=== PATIENT | male | born 1955 | race Caucasian/White ===

== ENCOUNTER → 2025-02-14 10:47 | Outpatient (CLI) | payer MEDICARE, SELFPAY ==
--- NOTE | 2025-02-14 10:51 | DI.RAD.S_ITS ---
PROCEDURE: XR LUMBAR SPINE 5V INDICATIONS: BACK PAIN TECHNIQUE: 5 views of the lumbar spine were acquired, including bilateral oblique views. COMPARISON: None. FINDINGS: Moderate degenerative changes throughout the lumbar spine with disc space narrowing, osteophytes, facet osseous hypertrophic changes most notably at L3-4, L4-5 and L5-S1 with suspected moderate bilateral neural foraminal narrowing at these levels. No radiographic evidence of fracture or subluxation. Moderate vascular calcifications of the aorta and iliac arteries. Degenerative changes bilateral hips partially imaged. Oblique images: No radiographic evidence of pars defect. IMPRESSION: Degenerative changes as discussed above. If symptoms persist or worsen, or there is high clinical suspicion of lumbar abnormality, MRI could be performed. Dictated by: Colten Powell M.D. on 02/14/2025 at 12:02 Approved by: Colten Powell M.D. on 02/14/2025 at 12:04
== END ==
PROVIDERS: PCP Physician Assistant Medical; Referring Provider Physical Medicine & Rehabilitation; Visit Provider Physical Medicine & Rehabilitation
DX: M47.816 Spondylosis without myelopathy or radiculopathy, lumbar region (principal); M47.817 Spondylosis without myelopathy or radiculopathy, lumbosacral region; M54.9 Dorsalgia, unspecified
CPT/HCPCS: 72110

== ENCOUNTER 2025-06-21 10:53 | Outpatient (CLI) | payer MEDICARE, SELFPAY ==
--- OUTSIDE RECORDS SUMMARY | 2025-06-16 09:13 | XMS_ITS | Encounter Summary ---
[facility] Address [address] [place] [address] Care Team Providers Care Marketing Admin Name Role Phone Myra Sommer PA-C Primary Care Provider [phone]- [phone] Reason for Referral * Clinic-Administered Medication (Routine) - Authorized Specialty Diagnoses / Procedures Referred By Summer lockett [place] [address] [facility] [address] [place] [address] Phone: tel: fax: Referral ID Status Reason Start Date Expiration Date V isits Requested Visits Authorized [id number] Authorized 06/16/2025 07/21/2026 1 1 * Hospital - Outpatient (Routine) - Closed Specialty Diagnoses / Procedures Referred By Contact Referred To Contact Gastroenterology Diagnoses Esophageal inlet patch Procedures EGD CA ESOPHAGOGASTRODUODENOSCOPY TRANSORAL DIAGNOSTIC CA EGD TRANSORAL BIOPSY SINGLE/MULTIPLE CA ANESTHESIA UPPER GI ENDOSCOPIC PX NOS CA ANESTHESIA COMBINED UPPER&L[place] [address] [address] Phone: tel:[phone] fax:[phone] Referral ID Status Reason Start Date Expiration Date Visits Re quested Visits Authorized [id number] Closed 05/22/2025 06/26/2026 1 1 Reason for Visit * Hospital - Outpatient (Routine) - Closed Specialty Diagnoses / Procedures Referred By Contact Referred To Contact Gastroenterology Diagnoses Esophageal inlet patch Procedures EGD CA ESOPHAGOGASTRODUODENOSCOPY TRANSORAL DIAGNOSTIC CA EGD TRANSORAL BIOPSY SINGLE/MULTIPLE CA ANESTHESIA UPPER GI ENDOSCOPIC PX NOS CA ANESTHESIA COMBINED UPPER&[place] [address] [address] Phone: tel:[phone] fax:[phone] Referral ID Status Reason Start Date Expiration Date Visits Re quested Visits Authorized [id number] Closed 05/22/2025 06/26/2026 1 1 Encounter Details Date Type Department Care Team (Latest Contact Info) Description 06/16/2025 9:13 AM PST - 06/16/2025 11:59 PM PST Hospital Encounter [facility] [address] [address] [place] [address] [address] Esophageal inlet patch Discharge Disposition: Discharged to home or self care Social History Tobacco Use Types Packs/Day Years Used Date Smoking Tobacco: Former Cigarettes 1.5 45 0 01/21/1972 - 10/10/2016 Smokeless Tobacco: Never Alcohol Use Standard Drinks/Week Comments Yes 14 (1 standard drink = 0.6 oz pu re alcohol) 1-2 beers per day Sex and Gender Information Value Date Recorded Sex Assigned at Male 08/24/2023 9:46 PM PST Legal Sex Male 3:50 PM PDT Gender Identity Male 08/24/2023 9:46 PM PST Sexual Orientation Straight 08/24/2023 9: 46 PM PST documented as of this encounter Last Filed Vital Signs Vital Sign Reading Time Taken Comments Blood Pressure 136/78 06/16/2025 11:27 AM PST Pulse 72 06/16/2025 11:27 AM PST Temperature 36.7 C (98.1 F) 06/16/2025 11:12 AM PST Respiratory Rate 13 06/16/2025 11:27 AM PST Oxygen Saturation 97% 06/16/2025 11:27 AM PST Inhaled Oxygen Concentration - - Weight 99.8 kg (220 lb) 06/16/2025 9:45 AM PST Height 180.3 cm (5' 11) 06/16/2025 9:45 AM PST Body Mass Index 30.68 06/16/2025 9:45 AM PST documented in this encounter Functional Status * Fall Risk and Interventions Question Answer Date of Assessment Author History of Falling No 06/16/2025 9:43 AM Awa Mace RN Score 0 06/16/2025 9:43 AM PST Awa Emery RN documented as of this encounter Medications at Time of Discharge atenolol (Tenormin) 50 MG tablet Take by mouth at night. CALCIUM PO Take by mouth at night. cetirizine (ZyrTEC) 10 MG tablet Take 10 mg by mouth at night. lisinopril 20 MG tablet Take 20 mg by mouth at night. magnesium, chelated, 100 MG tablet Take by mouth at night. omeprazole (PriLOSEC) [address] capsule Take 20 mg by mouth before breakfast and before evening meal. Do not crush or chew. simvastatin (Zocor) 40 MG tablet Take 40 mg by mouth at night. traZODone (Desyrel) 50 MG tablet 09/16/2023 triamcinolone (Kenalog) 0.1 % cream 08/06/2023 TURMERIC PO Take by mouth at night. documented as of this encounter Miscellaneous Notes * Discharge Instructions - Xavier Villalpando RN - 06/16/2025 11:21 AM PST EGD POST-PROCEDURE INSTRUCTIONS Diet: If your throat was numbed for the procedure, do not eat or drink anything HOT for one hour after procedure. You may resume a normal diet, unless you are nauseous, vomiting, or a specific diet is specified byyour physician. No alcohol for the next 24 hours. For the first 24 hours: Do not drive a car, operate machinery or power tools. Do not make important decisions, such as signing papers or checks, as your judgement may not be clear. Do not drink alcoholic beverages. Do not smoke unless someone is with you. This includes any type of smoking (vaping, cigarettes, marijuana, etc). If you have sleep apnea and use CPAP or BIPAP, use your machine when napping. Normal post-procedure symptoms: Sore throat. Gargle with warm water to help relieve discomfort. Mild gaseous discomfort (belching or passing gas). Redness, tenderness or swelling involving the IV site for the first 48 hours. Concerns to report to your physician: Severe nausea, vomiting or inability to keep fluids down after 24 hours. Fever above 101.5 F or 38.5 C Worsening or severe abdominal pain. Redness, tenderness or swelling involving the IV site for more than 2 days. Get help right away if: You have difficulty swallowing. You vomit bright red blood or a substance that looks like coffee grounds. You have bloody or black, tarry stools. Chest pain or shortness of breath - Call 911 If your provider took biopsies during your procedure, you may be notified of your results via a phone call or mail within 1-2 weeks. Your results will also be in MyChart if you have signed up. If any questions or concerns please contact [facility] office at . * H&P - Gloria Palm MD - 06/16/2025 10:15 AM PST Date of Admission 06/16/2025 Chief Complaint Follow-up to Cortes's esophagus and inlet patch ablation History of Present Illness Cortes's inlet patch Active and Past Medical/Surgical History There are no active hospital problems to display for this patient. 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 EYE SURGERY 1964 ROTATOR CUFF REPAIR 2019 SHOULDER OPEN ROTATOR CUFF REPAIR Left 2021 TONSILLECTOMY 1972 Outpatient Medications (last documented, pending reconciliation) Current Outpatient Medications Medication Instructions atenolol (Tenormin) 50 MG tablet at night CALCIUM PO at night cetirizine (ZYRTEC) 10 mg, at night lisinopril 20 mg, at night magnesium, chelated, 100 MG tablet at night omeprazole (PRILOSEC) 20 mg, 2 times daily before meals simvastatin (ZOCOR) 40 mg, at night traZODone (Desyrel) 50 MG tablet triamcinolone (Kenalog) 0.1 % cream TURMERIC PO at night Allergies No Known Allergies Social History Social History Tobacco Use Smoking status: Former Current packs/day: 0.00 Average packs/day: 1.5 packs/day for 45.0 years (67.5 ttl pk-yrs) Types: Cigarettes Start date: 01/21/1972 Quit date: 10/10/2016 Years since quittin.6 Smokeless tobacco: Never Vaping Use Vaping status: Never Used Substance Use Topics Alcohol use: Yes Alcohol/week: 14.0 standard drinks of alcohol Types: 14 Cans of beer per week Comment: 1-2 beers per day Drug use: Never Family History Family History Problem Relation Name Age of Onset Cancer Mother Danita Mak Cancer Father Johnathan Villarreal Obdulio Hammonds Diabetes Father Johnathan Villarreal Obdulio Hammonds Heart disease Father Johnathan Phil Obdulio Hammonds Stroke Father Johnathan AyushJuli Mak Jr Diabetes Maternal Grandfather Johnathan Phil Obdulio Diabetes Brother Johnathan Mak III Review of Systems Complete review of systems reviewed and negative unless otherwise detailed above or in the history of present illness. Objective Last Recorded Vital Signs BP 131/73 Pulse 84 Temp (!) 35.5 ??C (95.9 ??F) Resp 16 Ht 1.803 m (5' 11) Wt 99.8 kg (220 lb) SpO2 96% BMI 30.68 kg/m?? Temp (24hrs), Av.5 ??C (95.9 ??F), Min:35.5 ??C (95.9 ??F), Max:35.5 ??C (95.9 ??F) [place] body weight: 75.3 kg (166 lb 0.1 oz) Adjusted ideal body weight: 85.1 kg (187 lb 9.7 oz) Physical Exam Vitals: 06/16/25 0945 BP: 131/73 Pulse: 84 Resp: 16 Temp: (!) 35.5 ??C (95.9 ??F) SpO2: 96% Weight: 99.8 kg (220 lb) Height: 1.803 m (5' 11) Physical Examination: GENERAL APPEARANCE: no distress, pleasant, talking full sentences HEART: regular rhythm and rate, no murmurs appreciated LUNGS: normal respiratory effort; no wheezing, rales or rhonchi ABDOMEN: normal active bowel sounds, soft, non-tender, non-distended, Lab Results No results found for this or any previous visit (from the past 24 hours). Microbiology Results from last 24 hours No results found for this or any previous visit (from the past 24 hours). Diagnostic Results Imaging results from the last day: No Results Assessment/Plan EGD Code Status No Order documented in this encounter Plan of Treatment Not on file documented as of this encounter Procedures Procedure Name Priority Date/Time Associated Diagnosis Comments EGD Routine 06/16/2025 11:10 AM PST Esophageal inlet patch Cortes's esophagus without dysplasia [facility] SURGPATH/NONGYN CYTOLOGY Routine 06/16/2025 11:00 AM PST Esophageal inlet patch documented in this encounter Results * EGD (06/16/2025 11:10 AM PST) Anatomical Region Laterality Modality Endoscopy Narrative 06/16/2025 11:19 AM PST Table formatting from the original result was not included. Impression C0M2 Cortes's esophagus; performed targeted cold forceps biopsy for dysplasia screening. Cleveland-colored mucosa with islands in the esophagus; performed cold forceps biopsy. Subcentimeter polyp in the fundus of the stomach; performed cold forceps biopsy. The stomach and duodenum appeared normal. Recommendation Await pathology results - Resume regular diet. - Resume regular medication -Repeat EGD in 3 to 5 years; or earlier depending on pathology results or symptoms. Indication Esophageal inlet patch Patient reports significant improvement in his symptoms following ablation; although now has recurrence of symptoms in the past few days Staff Staff Role Austin [place], telecasting engineer Scrub Kyle Schulz MD Anesthesiologist Gloria Palm MD Proceduralist Katherine Vargas, telecasting engineer Nurse Medications See Anesthesia Record. Preprocedure A history and physical has been performed, and patient medication allergies have been reviewed. The patient's tolerance of previous anesthesia has been reviewed. The risks and benefits of the procedure and the sedation options and risks were discussed with the patient. All questions were answered and informed consent obtained. Details of the Procedure The patient underwent monitored anesthesia care, which was administered by an anesthesia professional. The patient's blood pressure, heart rate, level of consciousness, oxygen saturation, respirations, ETCO2 and ECG were monitored throughout the procedure. The scope was introduced into the mouth through a bite block and advanced to the second part of the duodenum. Retroflexion was performed in the cardia. The patient experienced no blood loss. The procedure was not difficult. The patient tolerated the procedure well. There were no apparent adverse events. Findings C0M2 Cortes's esophagus observed with no associated lesion without using a distal attachment cap. The diaphragmatic impression was 42 cm from the incisors, Z-line was 38 cm from the incisors and the top of gastric folds was 40 cm from the incisors; performed targeted cold forceps biopsy for dysplasia screening. Cleveland-colored mucosa with islands measuring 20 mm x 15 mm in the esophagus (18 cm from the incisors); performed cold forceps biopsy. One 4 mm flat polyp in the fundus of the stomach; performed cold forceps biopsy. The stomach and duodenum appeared normal. Specimens ID Type Source Tests Collected by Time A : gastric polyp Biopsy Stomach [facility] SURGPATH/NONGYN CYTOLOGY Gloria Palm MD 06/16/2025 1100 B : r/o dysplasia Biopsy Gastroesophageal Junction [facility] SURGPATH/NONGYN CYTOLOGY Gloria Palm MD 06/16/2025 1100 C : inlet patch. r/o dysplasia Biopsy Esophagus [facility] SURGPATH/NONGYN CYTOLOGY Gloria Palm MD 06/16/2025 1104 Post Procedure Diagnosis Esophageal inlet patch Cortes's esophagus without dysplasia Report electronically signed by Gloria Palm MD Gloria Palm MD ENDOSCOPY PROCEDURE ORDERABLES Final Result * [facility] SurgPath/NonGYN Cytology (06/16/2025 11:00 AM PST) Biopsy Stomach structure / Unknown 06/16/2025 11:00 AM PST Biopsy Cardioesophageal junction structure / Unknown 06/16/2025 11:00 AM PST Biopsy Esophageal structure / Unknown 06/16/2025 11:04 AM PST Narrative [facility] - 06/20/2025 7:48 PM PST CASE: [id number] PATIENT: Vipul Mak Pathology Report [id number] FINAL DIAGNOSIS: A: Gastric polyp: Fundic gland polyp. B: Gastroesophageal junction biopsy: Inflamed squamocolumnar mucosa with reactive changes. Negative for goblet cell metaplasia or dysplasia. C: Esophagus inlet patch biopsy: Inflamed squamocolumnar mucosa with reactive changes. Negative for goblet cell metaplasia or dysplasia. CLINICAL INFORMATION: B, C. Rule out dysplasia. ICD code(s): Q39.8. GROSS DESCRIPTION: A: Received in formalin, labeled with the patient's name and A. Stomach gastric polyp, are two, 0.3-0.4 cm portion of jones-brown soft tissue entire submitted in A1. B: Received in formalin, labeled with the patient's name and B. Gastroesophageal junction, are four, 0.2-0.3 cm portions of jones-brown soft tissue entirely submitted in B1. C: Received in formalin, labeled with the patient's name and C. Esophagus inlet pouch, are three, 0.3-0.6 cm portions of jones-white soft tissue entirely submitted in C1. (jlk VR) Mary Ribeiro M.D. Electronically signed 06/20/2025 19:43 Performed at [facility], [address] [place] [id number], CLIA#: [id number] [employer] Ax Developer: Regis Kohler MD Microscopic: Unless otherwise specified, a microscopic exam has been performed. Gloria Palm MD LAB PATHOLOGY ORDERABLES Final Result [facility] documented in this encounter Visit Diagnoses Diagnosis Esophageal inlet patch documented in this encounter Additional Health Concerns Infection Onset Date Last Indicated Resolved Time C. difficile 08/26/2023 08/26/2023 documented as of this encounter Care Teams Marketing Admin Relationship Specialty Start Date End Date Myra Sommer PA-C [address] [place] [address] PCP - General 09/04/23 documented as of this encounter
--- OUTSIDE RECORDS SUMMARY | 2025-06-16 10:49 | XMS_ITS | Encounter Summary ---
Author Organization [facility] Address [address] [address] Care Team Providers Care Insulation Power Unit Tender Name Role Phone Myra Sommer PA-C Primary Care Provider [phone]- [phone] Encounter Details Date Type Department Care Team (Late st Contact Info) Description 06/16/2025 10:49 AM PST Anesthesia Event [facility] [address] [address] [address] [place] [address] [place] [address] [place] [address] [place] [address] Anesthesia Record Procedure Summary Procedure Name Responsible Anesthesiologist Anesthesia Start Time Anesthesia Stop Time EGD Kyle Schulz MD 06/16/25 1049 1113 Events Date Time Event Comment 06/16/2025 1038 1049 An Start 1049 An Start Data 1049 In Room 1051 Anesthesia Ready 1108 an stop data 1110 Out of Room 1113 Handoff to Receiving I compl eted my handoff during which we: 1. Identified the patient 2. Identified the responsible provider 3. Reviewed the pertinent medical history 4. Discussed the surgical course 5. Reviewed intra-op anesthesia management and issues during anesthesia 6. Set expectations for post-procedure period 7. Allowed opportunity for questions and acknowledgement of understanding. 1113 An Stop Meds Name Total lidocaine PF local injection 2 % 25 mg propofol injection 10 mg/mL 400 mg LR 100 mL * Agents Name O2 Auxiliary O2 * Blood No blood administrations on file. Lines, Drains, and Airways Type Details Placement Removal Peripheral IV Placement Date: 06/03 11/25; Placement Time: 09; Catheter Size: 22 G; Orientation: Posterior, Right; Location: Hand; Site Prep: Chlorhexidine; Inserted by: John RN; Insertion Attempts: 1; Patient Tolerance: Tolerated well; Removal Date: 06/16/25; Removal Time: 1135; Removal Reason: Treatment complete/discharge 06/16/25 0954 by Awa Lopez RN 06/16/25 1135 by Xavier Villalpando RN documented in this encounter Social History Tobacco Use Types Packs/Day Years [...] PM PST documented as of this encounter Functional Status * Fall Risk and Interventions Question Answer Date of Assessment Author History of Falling No 06/16/2025 9:43 AM PST Awa Lopez RN Score 0 06/16/2025 9:43 AM PST Awa Emery RN documented as of this encounter Miscellaneous Notes * Anesthesia Postprocedure Evaluation - Kyle Schulz MD - 06/16/2025 11:13 AM PST Patient: Rogers Mak Procedure Summary Date: 06/16/25 Room / Location: [facility] Anesthesia Start: 1049 Anesthesia Stop: 1113 Procedure: EGD Diagnosis: Esophageal inlet patch Scheduled Providers: Gloria Palm MD; Kyle Schulz MD Responsible Provider: Kyle Schulz MD Anesthesia Type: MAC, TIVA ASA Status: 3 Anesthesia Type: MAC, TIVA Vitals Value Taken Time BP 111/76 06/16/25 11:12 Temp 36.7 06/16/25 11:13 Pulse 82 06/16/25 11:13 Resp 20 06/16/25 11:13 SpO2 98 % 06/16/25 11:13 Vitals shown include unfiled device data. Anesthesia Post Evaluation Patient location during evaluation: PACU Patient participation: complete - patient participated Level of consciousness: at baseline Pain score: 0 Pain management: satisfactory to patient Airway patency: patent Two or more strategies used to mitigate risk of obstructive sleep apnea Cardiovascular status: acceptable and hemodynamically stable Respiratory status: acceptable Hydration status: acceptable PONV Status: none There were no known notable events for this encounter. * Anesthesia Preprocedure Evaluation - Kyle Schulz MD - 06/16/2025 10:36 AM PST Patient: Rogers Mak Procedure Information Date/Time: 06/16/25 1015 Scheduled providers: Gloria Palm MD; Kyle Schulz MD Procedure: EGD Location: [facility] Procedure [place] Relevant Problems Cardio (+) Primary hypertension GI (+) Gastroesophageal reflux disease Current Outpatient Medications Medication Instructions ??? atenolol (Tenormin) 50 MG tablet at night ??? CALCIUM PO at night ??? cetirizine (ZYRTEC) 10 mg, at night ??? lisinopril 20 mg, at night ??? magnesium, chelated, 100 MG tablet at night ??? omeprazole (PRILOSEC) 20 mg, 2 times daily before meals ??? simvastatin (ZOCOR) 40 mg, at night ??? traZODone (Desyrel) 50 MG tablet ??? triamcinolone (Kenalog) 0.1 % cream ??? TURMERIC PO at night No current facility-administered medications for this encounter. NPO Status: Date of Last Liquid: 06/16/25 Time of Last Liquid: 0600 Date of Last Solid: 06/15/25 Time of Last Solid: 1999 Clinical information reviewed: Tobacco Allergies Meds Problems Med Hx Surg Hx Fam Hx Soc Hx Physical Exam Airway Mallampati: I TM distance: >3 FB Neck ROM: full Cardiovascular - normal exam Rhythm: regular Rate: normal Dental Pulmonary - normal examBreath sounds clear to auscultation Anesthesia Plan ASA 3 MAC and TIVA The patient is not a current smoker. intravenous induction DNR discussed with patient and patient agreed that DNR will be suspended Anesthetic plan and risks discussed with patient. Use of blood products discussed with patient who consented to blood products. Additional Equipment Requests documented in this encounter Plan of Treatment Not on file documented as of this encounter Visit Diagnoses Not on filedocumented in this encounter Administered Medications Inactive Administered Medications - up to 3 most recent administrations Medication Order MAR Action Action Date Dose Rate Site lactated Ringer's infusion Intravenous, Continuous PRN, Starting on Thu06/16/25 at 1049, Anesthesia Intraprocedure New Bag 06/16/2025 10:49 AM PST lidocaine PF (Xylocaine) 2 % injection Intravenous, As needed, Starting on Thu06/16/25 at 1053, Anesthesia Intraprocedure Given 06/16/2025 10:53 AM PST 25 mg Propofol (Diprivan) injection Intravenous, As needed, Starting on Thu06/16/25 at 1053, Anesthesia Intraprocedure Given 06/16/2025 11:05 AM PST 100 mg Given 06/16/2025 11:02 AM PST 50 mg Given 06/16/2025 10:58 AM PST 100 mg documented in this encounter Additional Health Concerns Infection Onset Date Last Indicated Resolved Time C. difficile 08/26/2023 08/26/2023 documented as of this encounter Care Teams Insulation Power Unit Tender Relationship Specialty Start Date End Date Myra Sommer PA-C [address] [place] [id number] PCP - General 09/04/23 documented as of this encounter
[2025-06-21 11:20] VITALS: BP 158/74; PULSE 77; RESP 16; TEMP 36.6; O2SAT 95
[2025-06-21 11:37] VITALS: PULSE 84; RESP 16; O2SAT 94
[2025-06-21] MEDS: LIDOCAINE 1% (PF) 5 ML 10 ML INJ (11:40)
[2025-06-21 11:41] VITALS: BP 158/79; PULSE 80; RESP 17; O2SAT 95
[2025-06-21 11:45] VITALS: BP 156/86; PULSE 85; RESP 16; O2SAT 95
--- NOTE | 2025-06-21 13:25 | PM.PROC.IR.1 ---
Date/Time/Diagnoses Date of procedure: 06/21/25 Time of procedure: 11:30 Pre-procedure diagnosis: Lumbar stenosis, pain Post-procedure diagnosis: same Procedure Notes Procedure: Interlaminar epidural steroid injection L4-5 Indications: Lumbar stenosis, pain Physician: Rock Norwood Total sedation minutes: 0 Complications: none Procedure in detail & Post-procedure care: Patient is here for the planned procedure today as noted. No significant change since the last office visit. For additional clinical scenario please see those office notes. Focused exam: Vital signs reviewed as charted on intake. Gen: Well developed. No acute distress. CV: RRR, no M/R/G Chest: Non-labored breathing, CTAB. Psych: Alert and well-oriented. Mood/Affect: normal. Patient suitable for the planned procedure today: Yes === The following procedure was performed in the office today: Lumbar Epidural Steroid Injection with fluoroscopic guidance - Interlaminar approach (55830) Levels Treated: L4-5 Approach: interlaminar Soft tissue: [1% lidocaine 2 mL] Test dose: [1% lidocaine 1 mL] Injectate: 0.75 mL of Depo-Medrol (80mg/mL) in 1.25 mL 1% lidocaine and 1.5 mL normal saline Fluoroscopy Agent: Isovue 300-M 1.5 mL Notes: 4.5 in 20 gauge Touhy needle utilized and adequate. Preprocedure pain 2/10, postprocedure pain 0/10. Procedure: After discussing the risks, benefits, and alternatives to the procedure, the patient expressed understanding and wished to proceed. The risks include but are not limited to infection, allergic reaction, nerve damage, stroke, paralysis, epidural hematoma, syncope, headache, respiratory or cardiac arrest, spinal cord injury, and scar formation. Informed consent was obtained and all patient questions were answered. The patient was brought to the procedure suite and placed in the prone position. A pre-procedural pause was conducted to verify: correct patient identity, procedure to be performed and as applicable, correct side and site, correct patient position, and any special requirements. Using a paramedian approach from the side noted above, the region overlying the target was localized under fluoroscopic visualization and the soft tissues overlying this structure were infiltrated with the anesthetic listed above. With fluoroscopic guidance, a #20 gauge Tuohy needle (unless otherwise noted) was inserted into the epidural space using a paramedian approach. The epidural space was localized utilizing intermittent multiplanar fluoroscopic guidance and loss of resistance technique. After negative aspiration, the contrast noted above was injected into the epidural space and the flow of contrast was observed, confirming epidural spread without evidence of intravascular or intrathecal spread. Multi-planar radiographs were obtained for documentation purposes. A test dose of lidocaine was injected into the above noted epidural space, and the patient was observed for 30-60 seconds. No sensory deficits were reported and normal lower extremity motor function was noted. Subsequently, the injectate as noted above was administered into the level noted above. The patient tolerated the procedure well and was discharged after an appropriate period of observation. If there are any complications, the patient was instructed to call us. The patient is to follow-up with the requesting provider in 2-3 weeks. This note was compiled using voice recognition software and therefore may contain typos. Please contact the author with any questions or concerns.
--- OUTSIDE RECORDS SUMMARY | 2025-06-23 15:23 | XMS_ITS | Continuity of Care Document ---
Author Organization [facility] [place] [address] Phone Care Team Providers Care Drive Thru Order Taker Name Role Phone Myra Sommer PA-C Primary Care Provider Myra Sommer PA-C Attending Provider Myra Sommer PA-C Referring Provider [phone] Care Teams Patient Care Team Team Status: Active Member Role/Relationship Status Dates Myra Sommer PA-C Primary Care Provider Active Patient Care Team Team Status: Inactive Member Role/Relationship Status Dates Myra Sommer PA-C Primary Care Provider Active Start: May 24, 2025 End: May 24, 2025 Myra Sommer PA-C Attending Provider Active Start: May 24, 2025 End: May 24, 2025 Myra Sommer PA-C Referring Provider Active Start: May 24, 2025 End: May 24, 2025 Chief Complaint and Reason for Visit Chief Complaint Admit Date 6 months AWV May 24, 2025 9 :47am Reason for Visit Admit Date Cortes's esophagus May 24, 2025 9 :47am Hyperlipidemia May 24, 2025 9 :47am Hypertension May 24, 2025 9 :47am Allergies, Adverse Reactions, Alerts No known allergies Social History Smoking Status Status Start Date End Date Date of Observa tion Ex-smoker (finding) 2017November 212024 7:17am Observation Status Observation Response Date of Response ETOH Use Beer May 24 8:56am Legal Sex Male Sex Assigned At Male 1955 Family History Relationship Condition Age at Onset Recorded Date/T husam Unknown Respiratory?Emphysema Unknown November 25, 2021 6:06am Endocrine/Autoimmune?None Unknown Ap ril 2021 6:06am Problems Active Problems Problem Diagnosis/Recorded Date Onset Date Stat us Screening for malignant neop lasm of prostate May 23, 2024 9:36am August 14, 2017 Active Anemia May 23, 2024 9:36am May 26, 019 Active Hyperglycemia May 23, 2024 9:39am Unknown A ctive Hyperlipidemia May 23, 2024 9:36am August 14, 2017 Active Microscopic colitis May 23, 2024 9:38am Unknown Active Chronic renal insufficiency May 23, 2024 9:36am May 22, 2021 Active COPD (chronic obstructive pulmonary disease) May 23, 2024 9:36am October 13, 2017 Active Tobacco dependence in remission May 23, 2024 9:3 6am July 02, 2022 Active GERD (gastroesophageal reflu x disease) May 23, 2024 9:36am March 11, 2018 Active Cortes's esophagus May 23, 2024 9:36am March 072018 Active Allergic rhinitis May 23, 2024 9:36am April 08, 2018 Active Hypertension May 23, 2024 9:36am May 05 18 Active Hiatal hernia May 23, 2024 9:36am March 07 19 Active Inactive/Resolved Problems Problem Diagnosis/Recorded Date Onset Date Stat us Adhesive capsulitis of right shoulder May 23, 2024 9:36am April 02, 2020 Resolved Chronic low back pain May 23, 2024 9:36am 2022 Resolved External thrombosed hemorrhoids December 03, 2024 12:30pm Unknown Resolved Hyponatremia November 21, 2024 7:41am Unknown Reso lved Atypical chest pain August 19, 2021 1:52pm Unknown Resolved Medications Medication Status Dose Units Route Directions Qty Days Refills S tart Date Stop Date End Date Reason(s) Instructions Adherence Atenolol 50 mg tablet Active 50 MG PO every day 90 3 Dece mb er 2023 6:37pm Take 1 tablet by mouth once a day Complies with drug therapy Trazodone 50 mg tablet Discont inued 0 .ROUTE .COMPLEX 180 2024 9:40am November 21, 2024 7:16a m Take 1-2 tablets by mouth at bedtime if needed for insomnia; Lisinopril 20 mg tablet Active 20 MG PO ONCE 90 2024 3:47pm Take 1 tablet by mouth once a day Complies with drug therapy Omeprazole 20 mg capsule,del ayed release(DR/ EC) Active 20 MG PO TWICE A DAY 180 3 2024 3:48pm Take 1 capsule by mouth twice a day Complies with drug therapy Simvastatin 40 mg tablet Active 40 MG PO EVERY EVENING 90 2024 3:48pm Take 1 tablet by mouth every night Complies with drug therapy Trazodone 50 mg tablet Discont inued 50 MG PO .COMPLEX 90 0 February 26, 2025 11:00p m Septe mber 2024 8:57a m 50 mg orally Take 1-2 tablets by mouth at bedtime for insomnia; Trazodone 50 mg tablet Active 50 MG PO .COMPLEX 90 0 2024 8:57am 50 mg orally Take 1-2 tablets by mouth at bedtime for insomnia; Complies with drug therapy Hydrocortis one-Pramoxi ne 1-1 % cream Active [address] FOUR TIMES DAILY as needed for hemorrhoids December 02, 2024 11:00p m Thrombosed external hemorrhoid s Perianal venous thrombosis Complies with drug therapy Atenolol 50 mg tablet Discont inued 50 MG PO every day Octobe r 2023 11:00p m Decem amanda 2023 6:38p m Take 1 tablet by mouth once a day Lisinopril 20 mg tablet Discont inued 20 MG PO ONCE Octobe r 2023 11:00p m Augua ry 2024 3:48p m Take 1 tablet by mouth once a day Omeprazole 20 mg capsule,del ayed release(DR/ EC) Discont inued 20 MG PO TWICE A DAY Octobe r 2023 11:00p m Janua ry 2024 3:48p m Take 1 capsule by mouth twice a day Mupirocin 2 % ointment Active 1 TOP Octob e r 2023 11:00p m Apply 1 a small amount to affected area three times a day Complies with drug therapy Simvastatin 40 mg tablet Discont inued 40 MG PO EVERY EVENING Octobe r 2023 11:00p m Janua ry 2024 3:48p m Take 1 tablet by mouth every night Triamcinolo ne Acetonide 0.1 % cream Active APPLIC TOP Octo be r 2023 11:00p m Apply APPLY SPARINGLY TO AFFECTED AREAS TWICE A DAY FOR TWO WEEKS ON AND ONE WEEK OFF. 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 Lot Number Reason(s) Given Vaccine Information Statement (VIS) Detail Administration Location COVID-19 (Moderna), 12Y+ Januar y 2024 COVID-19 (Pfizer) Bivalent Booster, 12Y+ Novemb er 2021 COVID-19 (MODERNA) Dece er 2020 COVID-19 MISSY November 09, 2020 Flu Vaccine [id number] Decemb er 2023 Flu Vaccine [id number] (Fluzone) Octobe r 2024 [id number] A [facility] Pneumococcal Conjugate Vaccine, 20 valent Octobe r 2021 Influenza, Quadrivalent, MDCK, PF Octobe r 2019 Influenza, Quadrivalent, PF Novemb er 2018 Influenza, Quadrivalent, PF Octobe r 2020 Respiratory Syncytial Virus Decemb er 2022 Tetanus-Dipth eria Februa ry 1995 Tetanus-Dipth eria Auguar y 2005 Td (Adult), 2 Lf, PF, Adsorbed Februa ry 1995 [id number] Td (Adult), 2 Lf, PF, Adsorbed Auguar y 2005 [id number] Tetanus-Dipth eria-Pertussi s Septem amanda 2013 Tetanus-Dipth eria-Pertussi s y 2024 Zoster, Live Novemb er 2022 Zoster, Live November 23, 2023 Zoster, Recombinant RZV (Shingrix) Novemb er 2022 Zoster, Recombinant RZV (Shingrix) November 23, 2023 Vital Signs Vital Reading Result Reference Range Collection Date/Time Height 71 [in_i] May 24, 9:03am Weight 99.79 kg May 24, 9:03am Heart Rate 73 /min 60-100 May 24, 025 9:03am Respiratory rate 16 /min 12-24 May 9:03am Oxygen saturation by Pulse oximetry 98 % 92-100 May 24, 2025 9 :03am BP Systolic 131 mm[Hg] 90-130 May 24, 9:03am BP Diastolic 100 mm[Hg] 60-90 May 24, 9:03am BMI (Body Mass Index) 30.8 kg/m2 Octobe r 2024 9:03am Advance Directives Advance Directive Response Recorded Date/ Time Advance Directives on file? No Mayo 2018 11:40am Advance Directives No May 24, 2025 9:10am Advance Directives Information Provided No July 16, 2022 2:30pm POLST Status Full Code May 24 9:10am Insurance Providers Guarantor JUAN CARLOS VALENZUELA Address [address] [place] [id number] Contact Info. Home Phone: Coverage Status Update:2024 Payer Group Member ID Coverage Type Subscriber Relationship to Subscriber Effective Date Expiration Date Medicare A and B [id number] wale VALENZUELA Id: [id number] [facility] [id number] Home Phone: Email: [email or web address] AARP Medicare Id: [id number] null JUAN CARLOS VALENZUELA Id: [id number] [facility] [address] Home Phone: Email: [email or web address] Self Encounters Encounter Location(s) Arrival/Admit Date Discharge/Departure Date Discharge/Departure Disposition Provider(s) Departed Physician/ Provider Office Visit -[facility] Care [facility] May 24, 2025 9:47am May 24, 2025 11:47am Discharged to home care or self care (routine discharge) Dafne Thomas PA-C Recent Diagnosis Onset Date Admit Date Cortes's esophagus March 07, 2019May 9:47am Hyperlipidemia August 14, 2017 May 24, 2025 9:47am Hypertension May 05, 2018 May 24, 2025 9:47am Assessments Diagnosis Onset Date Resolution Status Admit Date Cortse's esophagus March 07, 2019 chronic May 24, 2025 9:47am Hyperlipidemia August 14, 2017 chronic Oc tober 2024 9:47am Hypertension May 05, 2018 chronic Octob er 2024 9:47am Plan of Treatment Author Myra Sommer [facility] Authored May 24, 2025 1 0:46am Primary Care Office Visit: Vital Signs: Blood pressure: 131/100 Care Gaps: Flu vaccine not yet administered this season COVID vaccine not yet administered this season HPI: 1. Annual Wellness Visit: Juan Carlos presents for his second annual wellness visit. He completed the wellness questionnaire without any red flags identified. Memory screening was performed during which he recalled 1 of 3 words (banana) and completed a clock drawing that was close but had incorrect clock arms. Juan Carlos reports he has always had difficulty with memory recall and remembering directions, requiring him to write things down. He is not worried about his memory and states this has been a lifelong pattern. He will complete the more comprehensive memory test today which is scored out of 30 with a goal of 26 or better. 2. Hypertension: Juan Carlos's blood pressure today is 131/100 with an elevated diastolic reading. He reports his blood pressure is usually lower at home. Previous readings include 139/78, 121/65, and 137/68. He takes Lisinopril and Atenolol for blood pressure control. He will continue to monitor blood pressure at home approximately once weekly. 3. Back Pain and Spinal Stenosis: Juan Carlos reports pain below his rib cage in the back area. He received an epidural steroid injection approximately 6 weeks ago from a new doctor in the pain management office. The injection provided complete pain relief for approximately 3.5 weeks during which time he was very productive and had no back pain. After 3.5 weeks the pain returned severely and he experienced significant pain with any movement including sitting up, sitting down, and moving for about one week. The pain has since improved to almost his baseline but still hurts more than before the injection. He experiences spasms in his spine particularly at night when rolling over. The pain is located in the spine and radiates down his legs when walking. Pain is worse with bending forward. He takes muscle relaxers occasionally which primarily help him sleep but do not significantly relieve pain. He does not regularly use heating pads. He performs stretching exercises learned in physical therapy. He does not routinely take Tylenol, Ibuprofen, or Aleve. MRI from 5 months ago shows moderate to severe central canal stenosis. He has a follow-up appointment tomorrow with the injection doctor. 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 4. Gastroesophageal Reflux Disease: Juan Carlos takes Omeprazole twice daily for heartburn. He has a history of ulcers that were removed from his throat and esophagus. He was instructed to stay on twice daily Omeprazole indefinitely. He undergoes endoscopy every 6 months and was clean at his most recent examination so the interval will be extended to yearly. His next endoscopy is scheduled for June. 5. Hyperlipidemia: Juan Carlos takes a cholesterol medication daily. 6. Preventative Care: Prostate cancer blood screening is up to date and normal. Shingles vaccine series is complete. RSV vaccine is complete. Pneumonia vaccine is up to date. Flu and COVID vaccines have not yet been administered this season. Blood work is scheduled for July and labs have already been ordered. Review of Systems: Exam: General: Alert and oriented. Result Comments: Previous blood pressure readings: 139/78, 121/65, 137/68 MRI from 5 months ago: Moderate to severe central canal stenosis with milder radiating nerve pain. Disc and arthritis extend straight back towards the spinal cord. Kidney function: Normal Prostate cancer blood test: Normal and up to date Office Procedures: Flu vaccine to be administered today MOCA: Diagnosis: 1. Hypertension Assessment: Blood pressure today 131/100 with elevated diastolic reading. Patient reports blood pressure usually lower at home with previous readings showing variability. Currently on dual therapy with Lisinopril and Atenolol. Plan: Continue current blood pressure medications Lisinopril and Atenolol. Patient to monitor blood pressure at home approximately once weekly. No changes to blood pressure medications at this time. 2. Chronic Low Back Pain with Spinal Stenosis Assessment: Moderate to severe central canal stenosis on MRI from 5 months ago. Recent epidural steroid injection 6 weeks ago provided 3.5 weeks of complete relief followed by return of severe pain which has now improved to near baseline. Pain located in lower back with radiation down legs when walking and spasms in spine particularly at night. Muscle relaxers provide minimal benefit aside from sleep aid. Patient is retired rolloff truck driver with 40 years of occupational exposure. Plan: Patient has follow-up appointment tomorrow with pain management physician to discuss response to injection and potential for repeat injection with different angle or focus. If pain management physician does not believe another injection will be helpful, will refer to surgeon for evaluation given moderate to severe central canal stenosis which may benefit from surgical intervention. Home management to include heating pad for 20 minutes twice daily (morning and night) followed by stretching exercises. Continue muscle relaxers at bedtime as needed. May use Tylenol arthritis 650mg up to 4 times daily consistently. Ibuprofen or Aleve may be used occasionally on bad days but not routinely given kidney considerations. Patient to report back at July appointment regarding pain management recommendations and treatment response. 3. Gastroesophageal Reflux Disease with History of Esophageal Ulcers Assessment: History of ulcers removed from throat and esophagus. Currently managed with twice daily Omeprazole with good control. Recent endoscopy was clean. Plan: Continue Omeprazole twice daily indefinitely as recommended by gastroenterology. Endoscopy interval extended from every 6 months to yearly with next examination scheduled for June. 4. Hyperlipidemia Assessment: Managed with cholesterol medication. Plan: Continue current cholesterol medication. Lipid panel to be checked with routine blood work in July. 5. Memory Screening Assessment: Annual wellness visit memory screening showed recall of 1 of 3 words with clock drawing showing incorrect clock arms. Patient reports lifelong difficulty with memory recall and directions but is not concerned. More comprehensive memory testing to be performed today. Plan: Comprehensive memory test to be administered today with goal score of 26 or better out of 30 points. 6. Preventative Care Assessment: Prostate cancer screening, shingles vaccine, RSV vaccine, and pneumonia vaccine all up to date. Flu and COVID vaccines not yet administered this season. Plan: Flu vaccine administered today. COVID vaccine available at pharmacies. Blood work already ordered and scheduled for July appointment. Discharge Instructions/Discharge Summary: 1. Continue all current medications including Lisinopril, Atenolol, cholesterol medication, and Omeprazole twice daily. 2. For back pain management, use heating pad for 20 minutes twice daily (morning and night) followed by stretching exercises. May take Tylenol arthritis 650mg up to 4 times daily consistently. Ibuprofen or Aleve may be used occasionally on bad days but not routinely. 3. Continue muscle relaxers at bedtime as needed for back pain and sleep. 4. Monitor blood pressure at home approximately once weekly. 5. Complete Durable Power of Rn [facility] form designating who should make healthcare decisions if unable to do so, have it notarized at bank, and bring the notarized document to the [facility] to be scanned into medical record. 6. Follow up tomorrow with pain management physician to discuss recent injection response and potential next steps. 7. Contact this office for surgical referral if pain management does not recommend another injection given moderate to severe central canal stenosis. 8. COVID vaccine is available at pharmacies when ready. Next labs due: July 2025 (already ordered). Next follow-up appointment: July 2025. Medication changes: No changes to current medications. Future Tests Future scheduled test information is unavailable Pending Tests Pending diagnostic test information is unavailable Future Visits Future appointment information is unavailable Future Procedures Future procedure information is unavailable Future Medications Future medication information is unavailable Patient Instructions Patient instructions are unavailable
--- OUTSIDE RECORDS SUMMARY | 2025-06-23 15:23 | XMS_ITS | Encounter Summary ---
Author Organization [address] Address [address] [place] [address] Care Team Providers Care Can Marker Name Role Phone Myra Sommer PA-C Primary Care Provider [phone] Reason for Visit * Reason Onset Date Comments schedule 05/22/2025 Encounter Details Date Type Department Care Team (Late st Contact Info) Description 05/22/[address] [facility] [address] [place] [address] [address] [place] [address] [place] [address] [place] [address] [facility] [address] [place] [address] schedule Social History Tobacco Use Types Packs/Day Years [...] PM PST documented as of this encounter Miscellaneous Notes * Telephone Encounter - Nanci Flakito Quezada - 05/22/2025 2:14 PM PDT Last Appt: egd 12/13/2024 Upcoming Appt: Na Reason for call: Clinical questions Request: Patient has clinical questions related to Needing a procedure scheduled. Will send to spool sander for triage. Informed patient that RN will call them back within 24 business hours. Additional information: Egd appointment Response: Patient requests either response with phone call or MyChart documented in this encounter Plan of Treatment Not on file documented as of this encounter Visit Diagnoses Not on filedocumented in this encounter Additional Health Concerns Infection Onset Date Last Indicated Resolved Time C. difficile 08/26/2023 08/26/2023 documented as of this encounter Care Teams Can Marker Relationship Specialty Start Date End Date Myra Sommer PA-C [address] [place] [address] PCP - General 09/04/23 documented as of this encounter
--- OUTSIDE RECORDS SUMMARY | 2025-06-23 15:24 | XMS_ITS | Clinical Summary ---
Author Organization [facility] Address [address] [place] [address] Care Team Providers Care Manager Of Environmental Services Name Role Phone Karine Aragon MD Unavailable + Source Comments NOTE: The information displayed by Care Everywhere is extracted from the complete medical record and may not identify all current or past patient conditions.[facility] Allergies No known active allergies Medications ASPIRIN EC 81 MG ORAL ENTERIC COATED TABIndications:Pr eventative health care TAKE ONE TABLET ONCE DAILY 120 10 9 Active atenolol (TENORMIN) 50 mg tabletIndications :Essential hypertension Take 1 tablet (50 mg) by mouth daily 90 tablet 1 7 Active lisinopril (ZESTRIL, PRINIVIL) 10 mg tabletIndications :Essential hypertension Take 2 tablets (20 mg) by mouth daily 180 tablet 1 7 Active simvastatin (ZOCOR) 40 mg tabletIndications :Hyperlipidemia with target LDL less than 130 Take 1 tablet (40 mg) by mouth every evening 90 tablet 1 7 Active Active Problems Problem Noted Date Diagnosed Date Health examination of defined subpopulation 10/01 Cellulitis and abscess 01/15/2015 Overview (08/31/2015): Preventative health care 08/27/2008 Tobacco use disorder 08/05/2007 Varicose veins of lower extr emity without ulcer or inflammation 08/05/2007 Hyperlipidemia with target LDL less than 130 Overview (08/31/2015): HTN (hypertension) 02/19/2006 Overview (04/18/2014): Hypertension treatment plan updated 04/12/2014 by Seamus Chase MD Resolved Problems Problem Noted Date Diagnosed Date Resolved Date Scrotal abscess 10/30/2014 10/31/2014 CARE PLAN 12/12/2010 04/18/2014 Overview (12/12/2010): Hypertension Med Tx Plan Updated. Seamus Chase MD, 12/12/2010 Immunizations Immunization Administration Dates Next Due Td (Tetanus, Diphtheria) 09/18/1995 Td PF (Tetanus, Diphtheria) 08/08/2005 Tdap (Tetanus, Diphtheria, acellular Pertussis) 04/12/2014 Family History Medical History Relation Comments Cancer, Other Father colon cancer lat er in life Diabetes Father Stroke Father Hypertension Maternal Aunt Cancer, Other Mother lung cancer Asthma/Atopy No History Autoimmune disease No History Breast CA (mother,sister,aunt) No History CHD (male<55,female<60) No History Colon Polyps (Advanced Adenomatous) No History Depression No History Graves disease No History Juan Miguel's disease No History Hyperthyroid No History Hypothyroid No History Inheritable anemias No History Ovarian Cancer No History Prostate Cancer No History Relation Status Comments Brother Alive Father Maternal Aunt Mother Sister Alive Social History Tobacco Use Types Packs/Day Years Used Date Smoking Tobacco: Former Cigarettes 1 30 0 12/08/1987 - 12/07/2017 Smokeless Tobacco: Never Tobacco Cessation:Ready to Q uit: Yes Alcohol Use Standard Drinks/Week Comments Yes 3 (1 standard drink = 0.6 oz pur e alcohol) Sex and Gender Information Value Date Recorded Sex Assigned at Not on file Legal Sex Male 12:08 PM PST Gender Identity Not on file Sexual Orientation Not on file 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 Not on file Not on file Not on file Not on file Not on file Not on file Not on file Last Filed Vital Signs Vital Sign Reading Time Taken Comments Blood Pressure 142/92 08/08/2019 3:00 PM PST Pulse 61 08/08/2019 3:00 PM PST Temperature 36.6 C (97.8 F) 08/09/2018 1:48 PM PST Respiratory Rate 16 08/08/2019 3:00 PM PST Oxygen Saturation 100% 08/09/2018 1:48 PM PST Inhaled Oxygen Concentration - - Weight 97.5 kg (215 lb) 08/08/2019 3:00 PM PST Height 180.3 cm (5' 11) 08/08/2019 3:00 PM PST Body Mass Index 29.99 08/08/2019 3:00 PM PST Plan of Treatment Health Maintenance Due Date Last Done Comments Hep C Screening (1-time) 1975 LAW LIBRARIAN - Lung Cancer Screenin g Shared Decision Making 2007 Vaccine: Pneumococcal (1 of 1 - PCV) 2007 Vaccine: Shingles (1 of 2) 2007 Vaccine: [id number]-[id number]-Fu (2 - T d or Tdap) 04/12/2024 04/12/2014, 08/08/2005, 09/18/1995 FLU VACCINE (#1) 04/03/2025 Vaccine: RSV (1 - 1-dose 75+ series) 01/12/2032 Insurance [facility] Advance Directives For more information, please contact: [phone] Documents on File Type Date Recorded Patient Church Administrator Expl anation Durable Power of Sample Puller 10/30/2014 9:27 AM Advance Directive and Living Will 10/30/2014 9:27 AM Care Teams Manager Of Environmental Services Relationship Specialty [place] [address] [place] [address] Urology Physician: Auto-Assigned Urology 09/29/14
--- OUTSIDE RECORDS SUMMARY | 2025-06-23 15:24 | XMS_ITS | Encounter Summary ---
Author Organization [facility] Address [address] [address] Care Team Providers Care Bristle Machine Operator Name Role Phone Myra Sommer PA-C Primary Care Provider [phone]- [phone] Encounter Details Date Type Department Care Team (Latest Contact Info) Description 06/16/2025 Travel Social History Tobacco Use Types Packs/Day Years [...] Mace RN Score 0 06/16/2025 9:43 AM Awa Noonan RN documented as of this encounter Plan of Treatment Not on file documented as of this encounter Visit Diagnoses Not on filedocumented in this encounter Additional Health Concerns Infection Onset Date Last Indicated Resolved Time C. difficile 08/26/2023 08/26/2023 documented as of this encounter Care Teams Bristle Machine Operator Relationship Specialty Start Date End Date Myra Sommer PA-C [address] [place] [id number] PCP - General 09/04/23 documented as of this encounter
--- OUTSIDE RECORDS SUMMARY | 2025-06-23 15:24 | XMS_ITS | Clinical Summary ---
Author Organization [facility] Address [address] [address] Care Team Providers Care Blue Line Trimmer Name Role Phone Kemal Myra Leos PA-C Primary Care Provider +1- [phone] Allergies No known active allergies Medications magnesium, chelated, 100 MG tablet Take by mouth at night. Active CALCIUM PO Take by mouth at night. Active TURMERIC PO Take by mouth at night. Active cetirizine (ZyrTEC) 10 MG tablet Take 10 mg by mouth at night. Active omeprazole (PriLOSEC) [address] capsule Take 20 mg by mouth before breakfast and before evening meal. Do not crush or chew. Active lisinopril 20 MG tablet Take 20 mg by mouth at night. Active simvastatin (Zocor) 40 MG tablet Take 40 mg by mouth at night. Active atenolol (Tenormin) 50 MG tablet Take by mouth at night. Active traZODone (Desyrel) 50 MG tablet 09/16/19 24 Active triamcinolone (Kenalog) 0.1 % cream 08/06/19 24 Active cyclobenzaprin e (Flexeril) 10 MG tablet Take 10 mg by mouth three times daily if needed for muscle spasms. 07/18/20 24 025 Discontinued(Th erapy completed) methocarbamol (Robaxin) 500 MG tablet 11/22/19 25 025 Discontinued Active Problems Problem Noted Date Diagnosed Date Primary hypertension 03/22/2024 Gastroesophageal reflux disease 03/22/2024 Encounters Date Type Department Care Team Description 06/16/2025 10:49 AM [facility] Anesthesia Event [facility] [address] [address] Kyle Schulz MD 06/16/2025 9:13 AM PST - 06/16/2025 11:59 PM PST Hospital Encounter [facility] [address] [place] [address] Gloria Palm MD Esophageal inlet patch Discharge Disposition: Discharged to home or self care 06/16/2025 Travel 06/14/2025 Travel 05/22/2025 Telephone [facility] [address] [place] [address] Gloria Palm MD schedule from Last 3 Months Family History Medical History Relation Name Comments Diabetes Brother Johnathan Mak III Cancer Father Johnathan Mak Jr Diabetes Father Johnathan Mak Jr Heart disease Father Johnathan Mak Jr Stroke Father Johnathan Mak Jr Diabetes Maternal Grandfather Johnathan Mak Cancer Mother Danita Mak Relation Name Status Comments Brother Johnathan Mak III Father Johnathan Mak Jr Maternal Grandfather Johnathan Mak Mother Danita Mak Social History Tobacco Use Types Packs/Day Years Used Date Smoking Tobacco: Former Cigarettes 1.5 45 0 01/21/1972 - 10/10/2016 Smokeless Tobacco: Never Tobacco Cessation:Counseling Given: Not Answered Alcohol Use Standard Drinks/Week Comments Yes 14 (1 standard drink = 0.6 oz pu re alcohol) 1-2 beers per day Sex and Gender Information Value Date Recorded Sex Assigned at Male 08/24/2023 9:46 PM PST Legal Sex Male 3:50 PM PDT Gender Identity Male 08/24/2023 9:46 PM PST Sexual Orientation Straight 08/24/2023 9: 46 PM PST Last Filed Vital Signs Vital Sign Reading [...] Mass Index 30.68 06/16/2025 9:45 AM PST Plan of Treatment Health Maintenance Due Date Last Done Comments Anoscopy 1957 CT Colonography 1957 FIT-DNA 1957 FIT 1957 FOBT 1957 Lipid Panel 1957 Lung Cancer Screening Eligible 1957 Sigmoidoscopy 1957 Hepatitis B Screening 1975 Hepatitis C Screening 1975 Adult Depression Screening 01/12/1976 COVID-19 Vaccine ( season) 2025 06/02/2025, 08/08/2024, 07/15/2023 Colonoscopy 09/02/2028 09/04/2023 Colorectal Cancer Screening 09/02/2028 RSV: At-Risk Patients (60+ Years) and Gestational Age of 32-36 Weeks for Patients (1 - 1-dose 75+ series) 01/12/2032 DTaP/Tdap/Td Vaccines (5 - Td or Tdap) 08/08/2034 08/08/2024, 04/12/2014, 08/08/2005, Additional history exists Pneumococcal Vaccine: 50+ Years Completed 05/19/2022 Zoster Vaccines Completed 11/23/2023, 06/18/2023 Influenza Vaccine Completed 05/24/2025, 07/23/2024 Hepatitis A Vaccines Aged Out No long er eligible based on patient's age to complete this topic Hepatitis B Vaccines Aged Out No long er eligible based on patient's age to complete this topic Meningococcal Vaccine Aged Out No shanita mi eligible based on patient's age to complete this topic RSV: Pediatric Patients Age 0-20 months Aged Out No longer eligible based on patient's age to complete this topic Procedures Procedure Name Priority Date/Time Associated Diagnosis Comments EGD Routine 06/16/2025 11:10 AM PST Esophageal inlet 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 Impression C0M2 Cortes's esophagus; performed targeted cold forceps biopsy for dysplasia screening. [place]-colored mucosa with islands in the esophagus; performed [...] past few days Staff Staff Role Austin Houston RN Endoscopy Scrub Kyle Schulz MD Anesthesiologist Gloria Palm MD Proceduralist Katherine Vargas RN Endoscopy Nurse Medications See Anesthesia Record. Preprocedure A [...] targeted cold forceps biopsy for dysplasia screening. [place]-colored mucosa with islands measuring 20 mm x [...] CELLNETIX - 06/20/2025 7:48 PM PST CASE: [id number] PATIENT: Vipul Mak Pathology Report [id number] FINAL DIAGNOSIS: A: Gastric polyp: Fundic gland [...] M.D. Electronically signed 06/20/2025 19:[address] [facility], [address] [address], CLIA#: [id number] Crown [employer] Machine Operator: Regis Kohler MD Microscopic: Unless otherwise specified, a microscopic exam has been performed. us Gloria Palm MD LAB PATHOLOGY ORDERABLES Final Result [employer] * Colonoscopy (09/04/2023 10:34 AM PST) Anatomical Region Laterality Modality Endoscopy Narrative 09/04/2023 10:37 AM PST Table formatting from the original result was not included. Impression Normal entire exam s/p random bx to exclude Microscopic Colitis. No pseudomembranes. Recommendation Await pathology results Repeat colonoscopy in 5 years for cancer screening; earlier if you have symptoms. Indication Diarrhea, unspecified type Staff Staff Role Yonny Corral MD Anesthesiologist Stella Hagen, rehabilitation teacher Nurse Awa Lopez, rehabilitation teacher Scrub Francois Don, rehabilitation teacher Nurse Gloria Palm MD Proceduralist Shanelle Shelton, rehabilitation teacher Nurse Medications See Anesthesia Record. Preprocedure A [...] blood pressure, heart rate, level of consciousness, respirations, oxygen, ETCO2 and ECG were monitored throughout the procedure. A digital rectal exam was performed. The scope was introduced through the anus and advanced to the terminal ileum. Retroflexion was performed in the rectum. The quality of bowel preparation was evaluated using the [place] Bowel Preparation Scale with scores of: right colon = 2, transverse colon = 2, left colon = 2. The total BBPS score was 6. Bowel prep was adequate. The patient experienced no blood loss. The procedure was not difficult. The patient tolerated the procedure well. There were no apparent adverse events. Events Procedure Events Event Event Time ENDO SCOPE IN TIME 09/04/2023 9:50 AM ENDO SCOPE OUT TIME 09/04/2023 10:07 AM ENDO SCOPE IN TIME 09/04/2023 10:15 AM ENDO CECUM REACHED 09/04/2023 10:25 AM ENDO SCOPE OUT TIME 09/04/2023 10:32 AM Findings The terminal ileum, ascending colon, transverse colon, descending colon and rectum appeared normal. Performed random biopsy using biopsy forceps. Internal medium hemorrhoids observed during retroflexion; no bleeding was identified Specimens ID Type Source Tests Collected by Time A : random gastric Biopsy Stomach CELLNETIX SURGPATH/NONGYN CYTOLOGY Gloria Palm MD 09/04/2023 [id number] B : random colon Biopsy Colon CELLNETIX SURGPATH/NONGYN CYTOLOGY Gloria Palm MD 09/04/2023 1028 Gloria Palm MD ENDOSCOPY PROCEDURE ORDERABLES Final Result from Last 3 Months or Most Recently Relevant to Health Maintenance Additional Health Concerns Infection Onset Date Last Indicated C. difficile 08/26/2023 08/26/[address] [facility] MEDICARE [place] [address] Care Teams Blue Line Trimmer Relationship Specialty Start Date End Date Myra Sommer PA-C [address] [place] [address] PCP - General 09/04/23
--- OUTSIDE RECORDS SUMMARY | 2025-06-23 15:24 | XMS_ITS | Encounter Summary ---
Author Organization [employer] Address [address] [facility] [place] [address] Care Team Providers Care Adoption Services Manager Name Role Phone Myra Sommer PA-C Primary Care Provider +1- [phone] Encounter Details Date Type Department Care Team (Late st Contact Info) Description 08/18/2023 [email or web address] [address] [place] [address] [place] [address] [place], [place] [id number] Social History Tobacco Use Types Packs/Day Years Used Date Smoking Tobacco: Never Assessed Sex and Gender Information Value Date Recorded Sex Assigned at Male 08/24/2023 9:46 PM PST Legal Sex Male 3:50 PM PDT Gender Identity Male 08/24/2023 9:46 PM PST Sexual Orientation Straight 08/24/2023 9: 46 PM PST documented as of this encounter Plan of Treatment Not on file documented as of this encounter Visit Diagnoses Not on filedocumented in this encounter Additional Health Concerns Infection Onset Date Last Indicated Resolved Time C. difficile Rule-Out 08/26/2023 08/26/20232023 2:06 PM PST C. difficile 08/26/2023 08/26/2023 documented as of this encounter Care Teams Adoption Services Manager Relationship Specialty Start Date End Date Myra Sommer PA-C [address] [place] [address] PCP - General 09/04/23 documented as of this encounter
== END 2025-06-21 11:51 | disposition home or self-care (01) ==
LOC: RAD 10:53
PROVIDERS: PCP Physician Assistant Medical; Referring Provider Physical Medicine & Rehabilitation; Visit Provider Physical Medicine & Rehabilitation
DX: M48.062 Spinal stenosis, lumbar region with neurogenic claudication (principal)
CPT/HCPCS: 62323; J1010